=== PATIENT | male | born 1960 ===

== ENCOUNTER 2023-07-30 13:25 | Outpatient (CLI) | payer MEDICARE, MEDICAID, SELFPAY ==
--- NOTE | 2023-07-30 13:15 | RT.EKG_ITS ---
APPROVED REPORT Exam: Resting ECG Reason for Exam: NPW Baseline needed Patient Location: O HR:92 bpm ECG Measurements Heart Rate 92 AXIS AR 136 P 74 QRSd 97 QRS 72 QT 358 T 80 QTc 443 Conclusion Pacemaker spikes or artifacts...timing non-diagnostic Sinus rhythm...normal P axis, V-rate 50- 99 Probable left atrial enlargement...P >50mS, <-0.10mV V1 Left ventricular hypertrophy...multiple voltage criteria BASELINE ARTIFACTS,NO PACER I have reviewed and interpreted ECG and agree with software generated interpretation.
== END 2023-07-30 13:26 | disposition home or self-care (01) ==
LOC: DI.CARD 13:29
PROVIDERS: Visit Provider Internal Medicine Interventional Cardiology
DX: I10 Essential (primary) hypertension (principal); G45.9 Transient cerebral ischemic attack, unspecified; Z98.890 Other specified postprocedural states
CPT/HCPCS: 93010

== ENCOUNTER → 2023-07-30 13:29 | Outpatient (BNVA) | payer MEDICARE, MEDICAID, SELFPAY | PROVIDERS: Visit Provider Internal Medicine Interventional Cardiology | DX: I42.8 Other cardiomyopathies (principal); J44.9 Chronic obstructive pulmonary disease, unspecified; I10 Essential (primary) hypertension | CPT/HCPCS: 93005; 99203 ==